=== PATIENT | male | born 1975 | race Two or more races ===

== ENCOUNTER 2023-07-06 18:07 | Emergency (ER) | payer OTHER ==
[~2023-07-06] VITALS: Ht 182.9 cm; Wt 109.1 kg
[2023-07-06] MEDS ORDERED: METF-1211 PO (18:31)
[2023-07-06] MEDS ORDERED: SIMV-259 PO (18:31)
[2023-07-06] MEDS ORDERED: DULA0.75 SQ (18:34)
[2023-07-06] MEDS ORDERED: SITA25 PO (18:34)
[2023-07-06] MEDS ORDERED: INSU100I75 SQ (18:34)
[2023-07-06] MEDS ORDERED: LISI-893 PO (18:34)
[2023-07-06] MEDS ORDERED: GABA-1181 PO (18:34)
[2023-07-06] MEDS ORDERED: HYDR10TA31 PO (18:34)
[2023-07-06] MEDS ORDERED: SERT-162 PO (18:34)
[2023-07-06 18:41] LABS: GLUCOMETER DEV NAME(LOC) ERT.5; GLUCOSE,POINT OF CARE 114 MG/DL (70-110)
[2023-07-06 19:04] LABS: BASOPHILS % (AUTO) 0.4 % (0.0-2.0); HEMATOCRIT 39.4 % (41-53); HEMOGLOBIN 13.3 g/dL (13.5-17.5); LYMPHOCYTES # (AUTO) 2.9 K/uL (1.0-4.8); LYMPHOCYTES % (AUTO) 24.3 % (22.0-44.0); MEAN CORPUSCULAR HEMOGLOBIN 28.4 pg (26.0-34.0); MEAN CORPUSCULAR HGB CONC 33.7 G/dL (31.0-37.0); MEAN CORPUSCULAR VOLUME 84 fL (80-100); MONOCYTES # (AUTO) 0.8 K/uL (0.1-1.0); MONOCYTES % (AUTO) 6.9 % (2.0-9.0); NEUTROPHILS # (AUTO) 7.7 K/uL (1.8-7.7); NEUTROPHILS % (AUTO) 64.4 % (40.0-70.0); PLATELET COUNT (AUTO) 240 K/uL (150-450); RED BLOOD CELL COUNT(AUTO) 4.69 MIL/uL (4.50-5.90); RED CELL DISTRIBUTION WIDTH 15.1 % (11.5-14.5)
[2023-07-06 19:14] LABS: ANION GAP 8 mmol/L (8-16); CALCIUM, TOTAL 9.6 mg/dL (8.8-10.5); CARBON DIOXIDE 28 mmol/L (22-29); CHLORIDE 103 mmol/L (98-107); CREATININE 0.72 mg/dL (0.60-1.30); GLOMERULAR FILTR. RATE CALC > 60 mL/min (>60); GLUCOSE,RANDOM 123 mg/dL (70-110); POTASSIUM 4.3 mmol/L (3.5-5.1); SODIUM SERUM 139 mmol/L (136-145); UREA NITROGEN, BLOOD 12 mg/dL (7-18)
[2023-07-06] MEDS ORDERED: LISI5TAB21 PO (19:16)
[2023-07-06] MEDS ORDERED: HYDR-4584 PO (19:16)
[2023-07-06] MEDS ORDERED: SITA50 PO (19:16)
[2023-07-06] MEDS ORDERED: DULA1.5P SQ (19:16)
[2023-07-06] MEDS ORDERED: SIMV-43 PO (19:16)
[2023-07-06] MEDS ORDERED: INSU100I26 SQ (19:16)
[2023-07-06 19:25] LABS: TROPONIN I-HIGH SENSITIVITY Less Than 4 ng/L (<76)
[2023-07-06] MEDS: PB/HYOSCY/ATR/SCOP/LIDO/MAALOX 55 ML BOTTLE PO ONE (19:25)
[2023-07-06 19:39] LABS: CREATINE KINASE, TOTAL ONLY 170 U/L (39-308)
[2023-07-06 22:02] LABS: TROPONIN I-HIGH SENSITIVITY Less Than 4 ng/L (<76)
[2023-07-06 22:27] VITALS: BP 129/67; PULSE 71; RESP 18; TEMP 97.3
== END 2023-07-06 22:53 | disposition home or self-care (01) ==
LOC: EMS 18:07
DX: K29.70 Gastritis, unspecified, without bleeding (principal); E11.9 Type 2 diabetes mellitus without complications; E78.00 Pure hypercholesterolemia, unspecified; I10 Essential (primary) hypertension
CPT/HCPCS: 71045; 80048; 82550; 82962; 84484; 85025; 93005; 99285; 36415-L1; 36415-TC

== ENCOUNTER 2024-10-20 19:29 | Emergency (ER) | payer OTHER ==
[~2024-10-20] VITALS: Ht 180.3 cm; Wt 95.5 kg
[~2024-10-20 19:29] MED LIST: DULA1.5P SQ; GABA-1181 PO; HYDR-5256 PO; INSU100I26 SQ; LISI5TAB21 PO; METF-1211 PO; SERT-162 PO; SIMV-43 PO; SITA50 PO
[2024-10-20 19:45] VITALS: TEMP 98.1
[2024-10-20] MEDS ORDERED: SEMA1PEN3 SQ (19:54)
[2024-10-20 20:17] LABS: PLATELET COUNT (AUTO) 256 K/uL (150-450); RED BLOOD CELL COUNT(AUTO) 5.04 MIL/uL (4.50-5.90); RED CELL DISTRIBUTION WIDTH 14.5 % (11.5-14.5); WHITE BLOOD COUNT (AUTO) 14.4 K/uL (4.5-11.0)
[2024-10-20 20:26] LABS: CALCIUM, TOTAL 9.2 mg/dL (8.8-10.5); CREATININE 0.82 mg/dL (0.60-1.30); GLOMERULAR FILTR. RATE CALC > 60 mL/min (>60); GLUCOSE,RANDOM 153 mg/dL (70-110); SODIUM SERUM 136 mmol/L (136-145); UREA NITROGEN, BLOOD 24 mg/dL (7-18)
[2024-10-20 20:39] LABS: TROPONIN I-HIGH SENSITIVITY 5 ng/L (<76)
[2024-10-20] MEDS: SODIUM CHLORIDE 0.9% 1,000 ML IV ONE (22:39)
[2024-10-20] MEDS: METOCLOPRAMIDE HCL 5 MG/ML 2 ML VIAL IVP ONE (22:41)
[2024-10-21 02:15] VITALS: BP 133/80; PULSE 85; RESP 14; O2SAT 99
[2024-10-21 04:39] LABS: APPEARANCE,URINE CLEAR (CLEAR); GLUCOSE, URINE (UA) TRACE mg/dL (NEGATIVE); LEUKOCYTE ESTERASE ,URINE TRACE (NEGATIVE); NITRATE,URINE NEGATIVE (NEGATIVE); OCCULT BLOOD,URINE NEGATIVE (NEGATIVE); SPECIFIC GRAVITIY, URINE 1.014 (1.003-1.030)
[2024-10-21 04:52] LABS: SQUAMOUS EPITHELIAL CELL,UR Moderate /LPF (None Seen)
== END 2024-10-21 02:42 | disposition home or self-care (01) ==
LOC: EMS 19:29
DX: K52.9 Noninfective gastroenteritis and colitis, unspecified (principal); R51.9 Headache, unspecified; E11.9 Type 2 diabetes mellitus without complications; E78.00 Pure hypercholesterolemia, unspecified; I10 Essential (primary) hypertension; Z79.85 Long-term (current) use of injectable non-insulin antidiabetic drugs; Z79.899 Other long term (current) drug therapy
CPT/HCPCS: 99285; 96374; 70450; 96361; 80048; 81001; 83690; 84484; 85025; 36415; J2765